=== PATIENT | female | born 1985 | race Caucasian/White ===

== ENCOUNTER → 2020-05-31 13:23 | Outpatient (BNVA) | payer OTHER, SELFPAY | PROVIDERS: PCP Pediatrics; Referring Provider Pediatrics; Visit Provider Internal Medicine Gastroenterology | DX: Z76.89 Persons encountering health services in other specified circumstances (principal) ==

== ENCOUNTER 2023-07-11 10:40 | Emergency (ER) | payer OTHER, SELFPAY ==
[2023-07-11 11:03] VITALS: BP 136/80; PULSE 83; RESP 18; O2SAT 96; BMI 34.3
[2023-07-11 11:27] LABS: Appearance Urine Clear; Color Urine Yellow; Glucose Urine UA Negative (Negative); Leukocyte Esterase Urine Negative (Negative); Nitrite Urine Negative (Negative); Specific Gravity - Urine 1.015 (1.005-1.025); Urine Blood Negative (Negative); Urine Ketones Negative (Negative); Urine Protein Negative (Neg-Trace)
[2023-07-11 11:28] LABS: UPreg QC Valid YES; Urine Pregnancy NEGATIVE (NEGATIVE)
--- NOTE | 2023-07-11 11:30 | ED_ITS ---
HPI - Back Pain/Injury General Chief Complaint: Back Pain/Injury Stated Complaint: back pain Time Seen by Provider: 07/11/23 11:17 Source: patient Mode of arrival: ambulatory Limitations: no limitations History of Present Illness HPI Narrative: 38 yo female with history of herniated disc here with complaints of 3 weeks of lower back pain with no known injury or trauma. patient reports 2 years ago she was diagnosed with a herniated disc which she believes in her lower spine which she was not having any pain with this. This was diagnosed on MRI. Patient reports over the last 3 weeks she has had progressive pain. She has intermittent pain which radiates down the left leg with tingling. She denies any numbness in the groin. No numbness or weakness in the legs. No bowel or bladder incontinence. No fevers or chills or weight loss. Patient reports 1 week ago she went to urgent care and received Toradol IM and sent home with several days of Toradol but did not feel like this helped her pain. She did have x-rays of her lower spine which she believes were normal. She does have an appointment next week to speak to her primary care doctor with a phone call. She has been alternating Motrin and Tylenol with continued pain. Patient denies pain/numbness/tingling in her left UE. She does report >2 yrs of intermittent numbness/tingling in her right hand. Related Data Previous Rx's Medication Instructions Recorded cyclobenzaprine 10 mg tablet 10 mg PO Q8H PRN muscle spasm #15 07/11/23 tabs lidocaine 5 % topical patch 1 patch topical DAILY #15 ea 07/11/23 (Lidoderm) Allergies Allergy/AdvReac Type Severity Reaction Status Date / Time pistachio nut Allergy Anaphylaxis Verified 07/11/23 11:02 cats Allergy Mild Abdominal Uncoded 05/31/20 13:24 Pain pollen Allergy Mild Abdominal Uncoded 05/31/20 13:24 Pain Peanut (Diagnostic) AdvReac Mild Abdominal Uncoded 05/31/20 13:24 Pain Review of Systems Review of Systems: Yes all other systems are reviewed and are negative Constitutional: Constitutional: Reports no additional constitutional complaints, Denies body ache(s), Denies chills, Denies fever(s), Denies headache(s) and Denies weakness Eyes: Eyes: Reports no additional eye complaints and Denies change in vision ENT: Reports system reviewed and no additional complaints, except as documented, Denies dizziness, Denies headache(s), Denies nasal congestion, Denies nasal discharge and Denies neck pain Cardiovascular: Cardiovascular: Reports no additional cardiovascular complaints, Denies chest pain, Denies leg edema and Denies dyspnea Respiratory: Respiratory: Reports no additional respiratory complaints, Denies cough and Denies dyspnea Gastrointestinal: Gastrointestinal: Reports no additional gastrointestinal complaints, Denies abdominal pain, Denies diarrhea, Denies nausea and Denies vomiting Genitourinary: Genitourinary: Reports no additional female genitourinary complaints and Denies urinary incontinence Musculoskeletal: Musculoskeletal: Reports no additional musculoskeletal complaints, Reports back pain, Denies arthralgias, Denies joint swelling, Denies neck pain, Reports numbness, Reports radiating pain into limb and Reports tingling Integumentary/Breasts: Skin/Breast: Reports system reviewed and no additional complaints, except as docu and Denies rash Neurologic: Reports system reviewed and no additional complaints, except as documented, Denies Abnormal speech present, Denies dizziness, Denies headache(s), Reports numbness, Reports tingling and Denies weakness PMFSH Past Medical History Attestation statement: The following information was validated with the patient. Source: old records reviewed and nursing notes reviewed Onset Date is defined in the Problem List Problems that require an onset date and time if occurred within 24 hrs of arrival to the ED Aortic Dissection and Rupture; Neurologic impairment; Cardiopulmonary Arrest; Endotracheal Intubation; Insertion or Replacement of Mechanical Circulatory Assist Device Surgical History History of colonoscopy Family History Family History Father Hx of type 1 diabetes mellitus Mother Hx of type 1 diabetes mellitus History of asthma Social History Social History Alcohol intake: never Advance Directives: No Advance Directives Information Provided: No Physical Exam Vital Signs: Vital Signs: Last Vital Signs Pulse 83 07/11/23 11:03 Resp 18 07/11/23 11:03 BP 136/80 07/11/23 11:03 Pulse Ox 96 07/11/23 11:03 O2 Del Method Room Air 07/11/23 11:03 BMI result Body Mass Index 34.3 Const: General: cooperative, healthy appearing, comfortable and no acute distress Orientation/consciousness: patient oriented x3 Limitations: no limitations HEENT: Head: Yes normal to inspection Ears: hearing grossly normal bilaterally General nose exam: Normal external nose present Face and sinus: Yes normal facial exam Mouth: Normal oral and palatal mucosa present Throat: Yes posterior oropharynx normal Eyes: General: appearance normal, both eyes and all related structures Pupils: Equal, round and reactive pupils present Neck: Neck: Yes normal visual inspection Chest: Chest palpation & inspection: normal inspection of the chest Resp: Effort & Inspection: normal respiratory effort Auscultation: clear to auscultation bilaterally Cardio: Rate: regular rate Rhythm: regular rhythm Peripheral pulses: Peripheral pulses 2+ throughout GI: Inspection: Yes normal to inspection Palpation (GI): Soft to palpation and nontender Auscultation: normal bowel sounds Back/Spine/Pelvis: Other: TTP lumbar mid spine with no step offs or deformities TTP to bilateral lumbar soft tissue Pain with bilateral straight leg raise. Thoracic/Lumbar Spine: thoracic and lumbar spine normal to inspection Skin: General skin exam: no rashes or lesions noted Neuro: General: patient oriented x3, moves all extremities, no focal motor def icits and normal sensation to monofilament Cranial nerves: Yes CN's II-XII intact bilaterally, Yes Equal, round and reactive pupils present, Yes Bilaterally intact EOM present, Yes Nystagmus not present and Yes Normal facial strength present Cognition (Neuro): normal cognition Speech: No Abnormal speech present Gait exam (Neuro): Normal gait present Motor exam (neuro): 5/5 motor strength present throughout Sensory Exam: Normal double simultaneous stimulation for sensation Deep tendon reflexes (DTR's): Right patellar reflex intensity grade: 2+ and Left patellar reflex intensity grade: 2+ Extrem: General: Yes normal to inspection Medical Decision Making Medical Decision Making MDM Narrative: 38 yo female with history of herniated disc here with complaints of 3 weeks of lower back pain with no known injury or trauma. patient reports 2 years ago she was diagnosed with a herniated disc which she believes in her lower spine which she was not having any pain with this. This was diagnosed on MRI. Patient reports over the last 3 weeks she has had progressive pain. She has intermittent pain which radiates down the left leg with tingling. She denies any numbness in the groin. No numbness or weakness in the legs. No bowel or bladder incontinence. No fevers or chills or weight loss. Patient reports 1 week ago she went to urgent care and received Toradol IM and sent home with several days of Toradol but did not feel like this helped her pain. She did have x-rays of her lower spine then which she believes were normal. She does have an appointment next week to speak to her primary care doctor with a phone call. She has been alternating Motrin and Tylenol with continued pain. Patient denies pain/numbness/tingling in her left UE. She does report >2 yrs of intermittent numbness/tingling in her right hand. Normal neuro exam with no neuro deficits or red flag symptoms. There is some palpable lumbar tenderness with no step offs or deformities. Likely lumbar radiculipathy. No need for emergent MRI although patient may need as an outpatie nt basis which I explained to her. Had recent x-rays with no reports of falls or trauma since then so I do not think an x-ray is needed. Offered toradol IM but she declined. Recommend she continue OTC medications, will add flexeril, lidoderm patche. Reviewed worrisome signs and symptoms when to return to the emergency room with the patient. Differential Diagnosis Differential Diagnoses: The differential diagnosis associated with the presentation includes Normal neuro exam no focal neurological deficits or red flag symptoms suggest need for emergent MRI with low suspicion for cord compression, cauda equina, malignancy, epidural abscess gradual onset low concern for AAA falls or trauma to suggest fracture or dislocation No urinary symptoms to suggest pyelonephritis or renal colic Admission/Observation Consideration of admission/observation: Escalation of care including admission/observation considered Normal neuro exam no focal neurological deficits or red flag symptoms suggest need for emergent MRI, urgent NSY consultation and or admission or transfer Lab Data MDM Lab Attestation statement: I reviewed the patient's lab results. normal UA/urine preg negative Labs: Lab Results 07/11/23 Range/Units 11:19 Urine Color Yellow Urine Appearance Clear Urine pH 6.0 (5.0-9.0) Ur Specific [place] 1.015 (1.005-1.025) Urine Protein Negative (Neg-Trace) mg/dL Urine Glucose (UA) Negative (Negative) mg/dL Urine Ketones Negative (Negative) mg/dL Urine Blood Negative (Negative) Urine Nitrite Negative (Negative) Ur Leukocyte Esterase Negative (Negative) Urine Test NEGATIVE (NEGATIVE) Tests considered The following testing was considered but not selected: Normal neuro exam no focal neurological deficits or red flag symptoms suggest need for emergent MRI Prescription Management I considered prescription management with: Pain Medication Discharge Plan Discharge Clinical Impression: Lumbar radiculopathy Instructions: Lumbar Radiculopathy (ED) Additional Instructions: Keep your appointment next week for your phone call with her primary care did discussed if you need additional outpatient imaging No heavy lifting or bending Gentle stretching Continue Motrin and Tylenol Take the prescribed medications as needed Return for fever, numbness in the groin, bowel or bladder incontinence Prescriptions: New lidocaine [Lidoderm] 5 % adhesive patch,medicated 1 patch topical DAILY Qty: 15 0RF Rx Instructions: leave on most painful area for up to 12 hrs cyclobenzaprine 10 mg tablet 10 mg PO Q8H PRN (Reason: muscle spasm) Qty: 15 0RF Referrals: Physician,Unknown J [Primary Care Provider] - 1 week Stand Alone Forms: Work/School Release
== END 2023-07-11 12:02 | disposition home or self-care (01) ==
PROVIDERS: Emergency Provider Emergency Medicine
DX: M54.16 Radiculopathy, lumbar region (principal)
CPT/HCPCS: 81003; 81025; 99283